=== PATIENT | female | born 1970 | race Caucasian/White ===

== ENCOUNTER 2022-07-16 12:18 | Observation (INO) | payer BC, SELFPAY ==
[2022-07-16] VITALS (16 sets, daily range): BP systolic 107–140; BP diastolic 68–110; PULSE 80–107; RESP 14–21; TEMP 36.6–37.1; O2SAT 99–100
--- NOTE | ~2022-07-16 | XR_ITS ---
EXAMINATION: XR chest 2V DATE: 07/16/2022 14:12 INDICATION: Shortness of breath. Palpitations with exertion. TECHNIQUE: Frontal and lateral views of the chest were obtained. COMPARISON: Chest 2 views 04/01/2009 FINDINGS: A calcified left lung nodule is consistent with old granulomatous disease. No pleural effus ion or pneumothorax. The heart size is normal. There is a moderate-sized hiatal hernia. IMPRESSION: 1. Moderate-sized hiatal hernia. Reviewed, dictated and finalized at location A.
[2022-07-16 12:37] LABS: Basophils Absolute Auto 0.1 K/mm3 (0.0-0.1); Basophils Percent Auto 1.2 % (0.2-1.2); Eosinophils Absolute Auto 0.3 K/mm3 (0-0.3); Eosinophils Percent Auto 4.4 % (0-4.4); Hematocrit 22.5 % (37.0-47.0); Immature Granulocyte Absolute 0.01 K/mm3 (0.00-0.031); Immature Granulocyte Percent A 0.2 % (0-0.5); Lymphocytes Absolute Auto 1.84 K/mm3 (0.9-3.2); Lymphocytes Percent Auto 32.6 % (18.3-44.2); Mean Corpuscular HGB Conc 27.6 g/dl (32-36); Mean Corpuscular Volume 83.3 fl (80-100); Mean Platelet Volume 11.3 fl (7.4-10.4); Monocytes Absolute Auto 0.7 K/mm3 (0.1-0.6); Monocytes Percent Auto 13.1 % (2.6-8.5); Neutrophils Absolute Auto 2.7 K/mm3 (1.3-6.7); Neutrophils Percent Auto 48.5 % (45.5-73.1); Platelet Count Result 322 k/mm3 (150-375); White Blood Count 5.6 K/mm3 (4.5-10.0)
[2022-07-16 12:47] LABS: Hemoglobin 6.2 g/dL (12.0-15.0); Partial Thromboplastin Time 22.1 SECONDS (22.3-36.8); Prothrombin Time 13.5 Seconds (11.1-14.7)
[2022-07-16 12:48] LABS: Anisocytosis 2+ (NORMAL); Hypochromasia 2+ (NORMAL); Platelet Estimate Adequate (Adequate); Schistocytes None Seen (NORMAL)
[2022-07-16 12:49] LABS: Ovalocytes 1+ (NORMAL)
[2022-07-16 12:59] LABS: Alanine Aminotransferase 22 U/L (6-35); Albumin Level 4.3 g/dL (3.5-5.1); Alkaline Phosphatase 66 U/L (38-126); Anion Gap 9 mmol/L (8-16); Aspartate Amino Transferase 30 U/L (14-36); Bilirubin,Total 0.4 mg/dL (0.2-1.3); Blood Urea Nitrogen 12 mg/dL (7-17); Calcium 8.8 mg/dL (8.4-10.2); Carbon Dioxide 23 mmol/L (22-30); Chloride 105 mmol/L (98-107); Estimated CRCL calculation 95 ml/min; Estimated Glomerular Filt Rate > 60; Glucose 96 mg/dL (65-110); Potassium 3.9 mmol/L (3.4-5.0); Sodium 137 mmol/L (137-145)
--- NOTE | 2022-07-16 13:01 | ED.RECABL ---
HPI - Recheck/Abnormal Lab/Rx General Chief Complaint: Recheck/Abnormal Lab/Rx Stated Complaint: low hemoglobin Time Seen by Provider: 07/16/22 12:30 Source: patient Mode of arrival: ambulatory Limitations: no limitations History of Present Illness HPI narrative: Patient is a 51 y/o female who presents to the ED with c/o low hemoglobin. Patient reports over the last few days, she has had increased fatigue, generalized weakness, exertional dyspnea, palpitations with exertion. She went to [facility] yesterday to have her blood drawn as she has a history of anemia. She was notified that her hemoglobin was low at 5.8. She then presented here. Patient does currently take iron supplements. She has required transfusions in the past. She reports dark stools related to the iron, but denies any bright red bleeding, epistaxis, hematemesis, vaginal bleeding, hematuria. Denies any abdominal pain, nausea, vomiting, chest pain, dizziness/lightheadedness. Related Data Home Medications Medication Instructions Recorded Confirmed albuterol sulfate 0.63 mg/3 mL mg 07/16/22 solution for nebulization Allergies Allergy/AdvReac Type Severity Reaction Status Date / Time No Known Allergies Allergy Unknown Verified 07/16/22 12:27 Review of Systems Review of Systems: CONSTITUTIONAL: Denies fever, chills, or sweats. CARDIOVASCULAR: See HPI. RESPIRATORY: See HPI. GASTROINTESTINAL: See HPI. GENITOURINARY: Denies vaginal bleeding, dysuria or hematuria. SKIN: Denies rash or itching. MUSCULOSKELETAL: Denies back pain, joint pain, or myalgia. NEUROLOGIC: See HPI. All systems reviewed & are unremarkable except as noted in HPI and below PMFSH Past Medical History Medical History Anemia Surgical History Surgical History No pertinent past surgical history Exam Narrative: GENERAL: Well appearing, obese with BMI of 32.7, non-toxic, in no acute distress. HEAD: Normocephalic, atraumatic. NECK: Supple. No adenopathy, no masses. RESPIRATORY: Airway patent, respirations nonlabored. Clear to auscultation bilaterally, no rales, rhonchi, wheezing. CARDIOVASCULAR: Regular rate and rhythm without murmurs, rubs, or gallops. Radial pulses 2+ and equal bilaterally. ABDOMINAL: Soft, no tenderness throughout abdomen, nondistended, no hepatosplenomegaly. Normoactive BS. RECTAL: Normal rectal tone. Brown stool, guaiac positive. No external hemorrhoids noted. MUSCULOSKELETAL: Moves all extremities. Strength/ROM intact without gross deformities. No edema. SKIN: Warm, dry, mildly pale. No rashes. NEURO: A&O X3. Speech clear. Cranial nerves II-XII grossly intact. Steady gait. No ataxic movements. PSYCHIATRIC: Appropriate mood and affect. Normal interaction. Course Vital Signs Vital signs: Vital Signs Temperature 98.7 F 07/16/22 12:25 Pulse Rate 107 H 07/16/22 12:25 Respiratory Rate 21 H 07/16/22 12:25 Blood Pressure 140/110 H 07/16/22 12:25 Pulse Oximetry 100 07/16/22 12:25 Oxygen Delivery Room Air 07/16/22 12:25 Temperature 98.7 F 07/16/22 12:25 Pulse Rate 97 07/16/22 12:32 Respiratory Rate 16 07/16/22 12:32 Blood Pressure 138/90 07/16/22 12:32 Pulse Oximetry 100 07/16/22 12:32 Oxygen Delivery Room Air 07/16/22 12:25 MDM - Recheck/Abnormal Lab/Rx MDM Narrative Medical decision making narrative: Patient presented to ED with report of low hemoglobin, has had exertional dyspnea/palpitations/fatigue over the last few days. History of anemia on iron supplements. Patient initially tachycardic and tachypneic upon arrival, vitals stabilized quickly after resting on the ED stretcher. CBC with critically low hemoglobin at 6.2, normocytic with MCV 83, hematocrit 22.5. Normal WBC and platelets. Rectal exam performed in the ED revealed brown stool, guaiac positive. Patient denies any r
--- NOTE | 2022-07-16 13:36 | ECG_ITS ---
Measurements Intervals [place] Rate: 91 P: 32 WI: 119 QRS: 29 QRSD: 81 T: 33 QT: 354 QTc: 436 Interpretive Statements SINUS RHYTHM WITH SHORT WI INTERVAL BORDERLINE R WAVE PROGRESSION, ANTERIOR LEADS LOW QRS VOLTAGE- DIFFUSE LEADS BORDERLINE ST-T WAVE ABNORMALITY- INFERIOR LEADS BORDERLINE ECG NO PREVIOUS ECG AVAILABLE FOR COMPARISON Electronically Signed On 07-17-2022 7:50:31 CDT by Mike Martínez D.O.
[2022-07-16 14:47] LABS: NT Pro B Type Natriuretic Pept 155 pg/mL (19.9-100)
[2022-07-16 14:48] LABS: Troponin I < 0.012 ng/mL (0.000-0.034)
[2022-07-16 15:00] LABS: Transferrin 365 mg/dL (206-381); Troponin I < 0.012 ng/mL (0.000-0.034)
[2022-07-16 15:27] LABS: Iron < 10 ug/dL (37-170)
[2022-07-16 15:57] LABS: Folic Acid > 20.0 ng/mL (2.76->20)
[2022-07-16 16:03] LABS: Ferritin 6.21 ng/mL (6.24-137)
[2022-07-16 16:14] LABS: Percent Iron Saturation < 2 % (20-50)
--- NOTE | 2022-07-16 16:29 | PM.IMHP ---
H&P: HPI History of Present Illness Date/Time: 07/16/22 16:29 Chief Complaint: Abnormal labs Narrative: this is a 51-year-old female patient who has a history of iron deficiency anemia. The patient came to the emergency room due to low hemoglobin. Over the last several days the patient has been having increased weakness, exertional dyspnea and increased fatigue. She also had palpitations with exertion. The patient had [facility] lab draw her blood yesterday because of her anemia history. She was notified that her hemoglobin was as low as 5.8. There for she presented to the emergency room here at [facility] today. The patient has been having dark stools related to her oral pill intake. Patient was found to be guaiac positive today. The patient has had a blood transfusion in the past. She denies any hematemesis or him at a she sub. She denies any dizziness or lightheaded. No nausea vomiting or diarrhea. No complaints of shortness of breath or chest pain. The patient was given IV fluids. GI has been consulted. Hemoglobin 6.2 hematocrit 22.5. Iron is less than 10. TIBC is 532. Saturation is listen 2. Ferritin is 6.2. Troponin is negative. BNP is 155. Folate is greater than 20. The patient has been typed and cross-matched for 2 units of packed red blood cells. The patient is being admitted to observation status on the date of service of 07/16/2022. Review of Systems Review of Systems: All systems reviewed & are unremarkable except as noted in HPI and below Constitutional: Constitutional: Reports as per HPI and Reports no additional constitutional complaints Eyes: Eyes: Reports as per HPI and Reports no additional eye complaints ENT: Reports system reviewed and no additional complaints, except as documented and Reports Normal hearing present Cardiovascular: Cardiovascular: Reports no additional cardiovascular complaints Respiratory: Respiratory: Reports no additional respiratory complaints and Reports no additional respiratory complaints Gastrointestinal: Gastrointestinal: Reports as per HPI and Reports no additional gastrointestinal complaints Musculoskeletal: Musculoskeletal: Reports no additional musculoskeletal complaints Integumentary/Breasts: Skin/Breast: Reports system reviewed and no additional complaints, except as docu and Reports as per HPI Neurologic: Reports system reviewed and no additional complaints, except as documented, Reports as per HPI and Reports Normal hearing present Psychiatric: Psychiatric: Reports no additional psychiatric complaints and Reports as per HPI Endocrine: Endocrine: Reports no additional endocrine complaints Hematologic/Lymphatic: Hematologic/Lymphatic: Reports no additional hematologic/lymphatic complaints Allergic/Immunologic: Allergic/Immunologic: Reports no additional allergic/immunologic complaints PMFSH Past Medical History Medical History (Updated 07/16/22 @ 20:08 by Latrice Guerin NP) Anemia Asthma Surgical History Surgical History (Updated 07/16/22 @ 20:13 by Latrice Guerin NP) No pertinent past surgical history Family History Family History Mother Diabetes mellitus Son Diabetes mellitus Social History Social History (Updated 07/16/22 @ 20:10 by Latrice Guerin NP) Social History: the patient lives with her significant other. She has 2 children. The patient is self employed. She is a lifelong nonsmoker. Code status full code Smoking status: Never smoker Alcohol intake: current Drinks per week: 2 Substance use: never Substance use type: does not use Lack of Transportation: No Lack of Food: Never True Current Housing: I Have Housing Concerned About Future Housing: No Difficulty Paying Gas/Electric Bills: No Difficulty Paying for Meds: No Currently Unemployed: No Education: Don't Know Difficulty w/ Childcare or Family Care: No Spiritual care
--- NOTE | 2022-07-16 16:40 | ADMGEN ---
This patient, Kristine Salvador, was admitted to [facility] Surg Room 322-01. Patient/family oriented to hospital policies and general routines including ID bracelet, bed and alarms, visiting hours, pain management, procedures, bathroom and other care routines, personal items, smoking policy, room service/diet, and visiting hours. Information on how to activate the Rapid Response Team has been discussed. Patient/Family are encouraged to report perceived risks to care and to ask questions if they do not understand what they are told or what they should do.
[2022-07-17 02:20] LABS: Hematocrit 27.4 % (37.0-47.0)
[2022-07-17] MEDS: SODIUM CHLORIDE 0.9% IV 250 ML 30 ML IV CONT (03:22)
[2022-07-17 05:51] LABS: Basophils Absolute Auto 0.1 K/mm3 (0.0-0.1); Basophils Percent Auto 1.4 % (0.2-1.2); Eosinophils Absolute Auto 0.2 K/mm3 (0-0.3); Eosinophils Percent Auto 4.4 % (0-4.4); Immature Granulocyte Absolute 0.01 K/mm3 (0.00-0.031); Immature Granulocyte Percent A 0.2 % (0-0.5); Lymphocytes Absolute Auto 1.08 K/mm3 (0.9-3.2); Lymphocytes Percent Auto 25.1 % (18.3-44.2); Mean Corpuscular HGB Conc 29.6 g/dl (32-36); Mean Corpuscular Volume 84.4 fl (80-100); Mean Platelet Volume 11.1 fl (7.4-10.4); Monocytes Absolute Auto 0.5 K/mm3 (0.1-0.6); Monocytes Percent Auto 12.1 % (2.6-8.5); Neutrophils Absolute Auto 2.5 K/mm3 (1.3-6.7); Neutrophils Percent Auto 56.8 % (45.5-73.1); Platelet Count Result 228 k/mm3 (150-375); Red Cell Distribution Width 17.9 % (11.5-14.5); White Blood Count 4.3 K/mm3 (4.5-10.0)
[2022-07-17 06:00] VITALS: BP 128/82; PULSE 81; RESP 14; TEMP 36.2; O2SAT 100
[2022-07-17 06:07] LABS: Alanine Aminotransferase 17 U/L (6-35); Albumin Level 3.5 g/dL (3.5-5.1); Alkaline Phosphatase 51 U/L (38-126); Anion Gap 2 mmol/L (8-16); Aspartate Amino Transferase 22 U/L (14-36); Bilirubin,Total 0.8 mg/dL (0.2-1.3); Blood Urea Nitrogen 11 mg/dL (7-17); Calcium 8.2 mg/dL (8.4-10.2); Carbon Dioxide 26 mmol/L (22-30); Chloride 110 mmol/L (98-107); Estimated CRCL calculation 83 ml/min; Estimated Glomerular Filt Rate > 60; Glucose 86 mg/dL (65-110); Magnesium 2.4 mg/dL (1.6-2.3); Sodium 138 mmol/L (137-145)
[2022-07-17 06:21] LABS: Lactic Acid Reflex 0.6 mmol/L (0.7-2.0)
[2022-07-17 06:22] LABS: Anisocytosis 1+ (NORMAL); Platelet Estimate Adequate (Adequate); Poikilocytosis 1+ (NORMAL)
[2022-07-17 06:25] LABS: Schistocytes None Seen (NORMAL)
--- NOTE | 2022-07-17 07:18 | WPDGICN ---
Assessment and Plan Assessment and plan (1) TAINA (iron deficiency anemia): Code(s): D50.9 - Iron deficiency anemia, unspecified Status: Acute Assessment and Plan: Patient found to have anemia with iron deficient indices. This appears to be chronic and recurrent patient has been on iron previously. Initial plan was to proceed with GI endoscopy today after preparation yesterday. However patient refused preparation last night. Currently patient is stable. Endoscopy schedule is full for Sunday.(tomorrow). Plan colonoscopy an EGD on Sunday to further evaluate this. Patient does not appear to have any active bleeding. (Alternatively this could be done as an outpatient but likely will take several weeks to get approved and proceed.) Anticipate GI endoscopy when GI schedule allows. Plan to resume iron replacement after GI endoscopy. Continue monitor hemoglobin. Transfuse to a stable hematocrit at present. (2) Occult blood in stools: Code(s): R19.5 - Other fecal abnormalities Status: Acute Assessment and Plan: Patient found to have occult blood in stool suggesting GI blood loss may contribute to patient's recurrent iron deficiency anemia. Patient does not appear to have active bleeding rather occult blood in stool identified. GI Consult Note Consult date/time: 07/17/22 07:18 Reason for consult: Iron deficiency anemia and occult blood in stool. HPI: Kristine Salvador is a 51 year old female I am asked to see at the request of the emergency room. Patient in usual state of health. Was found to have rather significant anemia as an outpatient. For this reason sent to the emergency room. Patient reports she has been on low in iron and placed on iron replacement therapy since that time stools have been dark. In the emergency room stool hemoccults were documented to be Hemoccult positive. Patient denies any obvious blood in her stools. She has no nosebleeds or bruising. She states she did receive transfusions at some point in the past because of anemia. Family history is significant that her mother has had colon polyps. Patient has never had GI evaluation for her anemia. Patient was admitted to the hospital for transfusion last evening. Review of Systems Review of Systems: Review of systems noncontributory. PMFSH Past Medical History Medical History (Updated 07/17/22 @ 07:20 by Cristi Khan MD) Anemia Asthma Surgical History Surgical History (Updated 07/16/22 @ 20:13 by Latrice Guerin NP) No pertinent past surgical history Family History Family History Mother Diabetes mellitus Son Diabetes mellitus Social History Social History (Updated 07/16/22 @ 20:10 by Latrice Guerin NP) Social History: the patient lives with her significant other. She has 2 children. The patient is self employed. She is a lifelong nonsmoker. Code status full code Smoking status: Never smoker Alcohol intake: current Drinks per week: 2 Substance use: never Substance use type: does not use Lack of Transportation: No Lack of Food: Never True Current Housing: I Have Housing Concerned About Future Housing: No Difficulty Paying Gas/Electric Bills: No Difficulty Paying for Meds: No Currently Unemployed: No Education: Don't Know Difficulty w/ Childcare or Family Care: No Spiritual care concerns: No Meds Home Medications and Allergies Home Medications Medication Instructions Recorded Confirmed Type Adult One Daily Multivitamin 1 tablet PO DAILY 07/16/22 07/16/22 History albuterol sulfate 0.63 mg/3 mL 1 mg inhalation Q4H PRN Shortness 07/16/22 07/16/22 History solution for nebulization Of Breath ferrous sulfate-vitamin C 1 tablet PO DAILY 07/16/22 07/16/22 History Allergies Allergy/AdvReac Type Severity Reaction Status Date / Time No Known Allergies Allergy Unknown
--- NOTE | 2022-07-17 08:55 | PM.IMPN ---
Progress Note: A&P Assessment and Plan (1) Anemia: Code(s): D64.9 - Anemia, unspecified Status: Acute Assessment and Plan: Patient found to have iron deficiency anemia. Hemoglobin 6.2 on presentation. She was transfused 2 units packed RBCs on 07/16. H&H remaining stable now at 8.0. Appreciate GI and Hematology consultation. Stool reportedly guaiac positive in the ED. she will need EGD and colonoscopy following appropriate prep, tentatively planned for Sunday, 07/19. No evidence of active bleeding at this time. Continue iron supplementation. Trend H&H to ensure remaining stable. (2) GI bleeding: Qualifiers: GI bleed type/associated pathology: unspecified gastrointestinal hemorrhage type Qualified Code(s): K92.2 - Gastrointestinal hemorrhage, unspecified Code(s): K92.2 - Gastrointestinal hemorrhage, unspecified Status: Acute Assessment and Plan: See plan above. No evidence of active bleeding at this time. Stool occult blood test pending. (3) Asthma: Code(s): J45.909 - Unspecified asthma, uncomplicated Status: Acute Assessment and Plan: Not in acute exacerbation. Albuterol inhaler as needed Subjective Date/time seen: 07/17/22 08:55 Interval history: Date of service: 07/17/2022 Kristine Salvador is a 51-year-old female with history of asthma and anemia is seen in for anemia. Patient states that she is feeling fairly well today. She reports that her stools are dark due to taking iron supplementation and has not noticed any change in her stool over the past days to weeks. Denies any melena or hematochezia. Reports a formed bowel movement 2 days ago. She reports intermittent GERD symptoms which she attributes to a large hiatal hernia. She has no epigastric pain or tenderness. She denies nausea, vomiting, fever, chills. Denies hematuria, hematemesis, hemoptysis, epistaxis, or any other episodes of bleeding. Denies shortness of breath, cough, or chest pain. She does feel a bit bloated in her abdomen after receiving her 2nd blood transfusion. Denies any swelling in her extremities. Review of Systems Review of Systems: All systems reviewed & are unremarkable except as noted in HPI and below Exam Narrative: General: Well-nourished, well-appearing 51-year-old female, sitting up in bed, comfortable, NARD Neuro: awake, alert and oriented x4, speech clear, no focal neuro deficits noted HEENMT: normocephalic, atraumatic, EOMI, sclerae anicteric Respiratory: clear to auscultation bilaterally, nonlabored breathing Cardio: regular rate, regular rhythm with S1-S2 Abdomen: nondistended, normoactive bowel sounds, soft, nontender to palpation Extremities: no edema, erythema, or tenderness to palpation Skin: no rashes or lesions, warm and dry Psych: appropriate mood and affect, judgment and insight intact Objective Data Vital Signs Vital Signs: Vital Signs - 24 hr 07/16/22 12:25 07/16/22 12:32 07/16/22 16:58 Temperature 98.7 F 98.6 F Pulse Rate 107 H 97 92 Respiratory Rate 21 H 16 16 Blood Pressure 140/110 H 138/90 130/78 Pulse Oximetry 100 100 100 Oxygen Delivery Room Air 07/16/22 12:30 07/16/22 17:12 07/16/22 17:13 Temperature Pulse Rate 90 94 95 Respiratory Rate Blood Pressure 112/68 129/80 125/75 Pulse Oximetry Oxygen Delivery 07/16/22 17:28 07/16/22 18:20 07/16/22 17:25 Temperature 98.6 F 98.6 F Pulse Rate 91 91 Respiratory Rate 18 18 Blood Pressure 120/73 120/73 Pulse Oximetry 100 100 100 Oxygen Delivery Room Air 07/16/22 17:44 07/16/22 18:44 07/16/22 19:44 Temperature 98.6 F 98.5 F 97.9 F Pulse Rate 84 88 94 Respiratory Rate 18 18 18 Blood Pressure 123/88 122/74 126/79 Pulse Oximetry 100 100 100 Oxygen Delivery 07/16/22 20:56 07/16/22 21:07 07/16/22 21:17 Temperature 98.6 F 98.2 F 98.1 F Pulse Rate 96 86 82 Respiratory Rate 18 18 16 Blood Pressure 135/90 107/68 109/
[2022-07-17] MEDS: MULTIVITAMINS THERAPEUTIC TAB (*BKC) 1 TABLET PO (08:59)
[2022-07-17] MEDS: ASCORBIC ACID 500 MG TABLET PO (08:59)
[2022-07-17 13:55] LABS: IFOB Positive Control Positive; Immunochemical Fecal Occult Bl Negative (N)
[2022-07-17 14:00] VITALS: BP 119/70; PULSE 99; RESP 16; TEMP 36.1; O2SAT 100
[2022-07-17 17:59] LABS: Hematocrit 29.7 % (37.0-47.0); Hemoglobin 8.6 g/dL (12.0-15.0)
[2022-07-17 21:32] VITALS: BP 117/69; PULSE 88; RESP 18; TEMP 36.9; O2SAT 100
[2022-07-18 06:00] VITALS: BP 132/72; PULSE 83; RESP 14; TEMP 36.9; O2SAT 99
[2022-07-18 06:23] LABS: Hematocrit 26.9 % (37.0-47.0); Mean Corpuscular HGB Conc 29.7 g/dl (32-36); Mean Corpuscular Hemoglobin 25.4 pg (26-34); Mean Corpuscular Volume 85.4 fl (80-100); Platelet Count Result 217 k/mm3 (150-375); Red Blood Count 3.15 M/mm3 (4.2-5.4); Red Cell Distribution Width 18.2 % (11.5-14.5); White Blood Count 3.9 K/mm3 (4.5-10.0)
[2022-07-18 06:34] LABS: Anion Gap 2 mmol/L (8-16); Blood Urea Nitrogen 13 mg/dL (7-17); Calcium 8.2 mg/dL (8.4-10.2); Carbon Dioxide 25 mmol/L (22-30); Chloride 110 mmol/L (98-107); Estimated CRCL calculation 83 ml/min; Estimated Glomerular Filt Rate > 60; Glucose 101 mg/dL (65-110); Potassium 3.8 mmol/L (3.4-5.0); Sodium 137 mmol/L (137-145)
[2022-07-18] MEDS: ACETAMINOPHEN 325 MG TABLET 650 MG PO (06:48)
[2022-07-18] MEDS: FERROUS SULFATE 324 MG TABLET PO (08:17)
[2022-07-18] MEDS: MULTIVITAMINS THERAPEUTIC TAB (*BKC) 1 TABLET PO (08:17)
[2022-07-18] MEDS: ASCORBIC ACID 500 MG TABLET PO (08:23)
[2022-07-18] MEDS: PEG (High)/E-LYTE SOLN 4,000 ML BTL 4000 ML PO (10:27)
--- NOTE | 2022-07-18 12:49 | PDONCCN ---
HPI - Date of Consult Date/Time: 07/18/22 12:49 Requesting Physician: Vicki Holman PA-C Primary Care Provider: Dawood Nettles MD - Consult Narrative Reason for consult: Iron deficiency anemia Narrative: Kristine Salvador is a 51 year old female with history of iron deficiency anemia and received blood transfusion 5 years ago came into the hospital with generalized weakness dyspnea on exertion and palpitation with few flights of stairs. She denies any bleeding including melena hematochezia but does have dark stool due to the oral iron she has been taking. On arrival to the ER her hemoglobin was only 5.8. She never had EGD and colonoscopy in the past. She received 2 units of packed red blood cell. She is currently receiving preparation for the endoscopy and colonoscopy tomorrow. She denies any history of stomach surgery. She denies being a vegetarian. Denies any recent weight loss. No other new complaints. Review of Systems - Review of Systems All systems reviewed & are unremarkable except as noted in HPI and bel - Neurologic Reports system reviewed and no additional complaints, except as documented, Reports hearing normal [facility] Medical History: Medical History (Last Updated 07/16/22 @ 20:08 by Latrice Guerin NP) Anemia Asthma Surgical History: Surgical History (Last Updated 07/16/22 @ 20:13 by Latrice Guerin NP) No pertinent past surgical history Family History: Family History (Last Reviewed 07/16/22 @ 20:08 by Latrice Guerin NP) Mother Diabetes mellitus Son Diabetes mellitus - Social History Social History: Social History (Last Updated 07/16/22 @ 20:10 by Latrice Guerin NP) Alcohol Use: Alcohol intake: current Drinks per week: 2 Substance Use: Substance use: never Substance use type: does not use Others: Spiritual care concerns: No Smoking Status: Smoking status: Never smoker Social Determinants of Health: Has the Lack of Transportation Kept You From Medical Appointments or From Getting Medications?: No Within the Past 12 Months, Were You Worried Whether Your Food Would Run Out Before You Got Money to Buy More?: Never True What is Your Housing Situation Today?: I Have Housing Are You Worried That in the Next 2 Months, You May Not Have Your Own Housing to Live In?: No Do You Have Trouble Paying Your Heating Or Electricity Bill?: No Do You Have Trouble Paying For Medicines?: No Are You Currently Unemployed and Looking for Work?: No Highest Level of Education Completed: Don't Know Do You Have Trouble With Childcare or the Care of a Family Member?: No Exam - Vital Signs Vital Signs - 24 hr 07/17/22 14:00 07/17/22 20:00 07/17/22 21:32 Temperature 36.1 C L 36.9 C Pulse Rate 99 88 Respiratory Rate 16 18 Blood Pressure 119/70 117/69 Pulse Oximetry 100 100 Oxygen Delivery Room Air 07/18/22 06:00 Temperature 36.9 C Pulse Rate 83 Respiratory Rate 14 Blood Pressure 132/72 Pulse Oximetry 99 Oxygen Delivery - Exam HEENT: EOMI, PERRLA, mucous membranes moist and pink Neck: supple. No: JVD Lungs: clear to auscultation, normal air movement Heart: no murmurs, gallops, or rubs, regular rhythm, regular rate Abdomen: abdomen soft, non-distended, normal bowel sounds Extremities: normal pulses Integumentary: no abnormalities Neurological: normal speech Psychological: mental status NL, mood NL - Lab Results Laboratory Last Values WBC 3.9 K/mm3 (4.5-10.0) L 07/18/22 06:08 RBC 3.15 M/mm3 (4.2-5.4) L 07/18/22 06:08 Hgb 8.0 g/dL (12.0-15.0) L 07/18/22 06:08 Hct 26.9 % (37.0-47.0) L 07/18/22 06:08 MCV 85.4 fl (80-100) 07/18/22 06:08 MCH 25.4 pg (26-34) L 07/18/22 06:08 MCHC 29.7 g/dl (32-36) L 07/18/22 06:08 RDW 18.2 % (11.5-14.5) H 07/18/22 06:08 Plt Count 217 k/mm3 (150-375) 07/18/22 06:08 MPV 11.0
--- NOTE | 2022-07-18 14:24 | PM.IMPN ---
Progress Note: A&P Assessment and Plan (1) Anemia: Code(s): D64.9 - Anemia, unspecified Status: Acute Assessment and Plan: Patient found to have iron deficiency anemia. Hemoglobin 6.2 on presentation. She was transfused 2 units packed RBCs on 07/16. H&H remaining stable now at 8.0. Appreciate GI and Hematology consultation. Stool reportedly guaiac positive in the ED. Stool occult blood test during this admission is negative. Planning for EGD and colonoscopy tomorrow. No evidence of active bleeding at this time. Continue PO iron supplementation with vitamin C. IV iron infusion today per hematology recommendations. Repeat H&H this evening to ensure remaining stable. (2) GI bleeding: Qualifiers: GI bleed type/associated pathology: unspecified gastrointestinal hemorrhage type Qualified Code(s): K92.2 - Gastrointestinal hemorrhage, unspecified Code(s): K92.2 - Gastrointestinal hemorrhage, unspecified Status: Acute Assessment and Plan: See plan above. No evidence of active bleeding at this time. Stool occult blood test negative. (3) Asthma: Code(s): J45.909 - Unspecified asthma, uncomplicated Status: Acute Assessment and Plan: Not in acute exacerbation. Albuterol inhaler as needed Subjective Date/time seen: 07/18/22 14:24 Interval history: Date of service: 07/18/2022 Kristine Salvador is a 51-year-old female with history of asthma and anemia who is seen in for anemia. She is feeling okay today. She did have some nausea this morning which she attributes to taking her iron supplement on empty stomach. This [place] have 1 episode of watery emesis but she states that she was able to keep her pills down. She denies any ongoing nausea or vomiting. Reports having a formed bowel movement this morning. States that she has noticed very dark stools yesterday and this morning. Denies abdominal pain. No fevers or chills. No shortness of breath, cough, chest pain, dizziness, lightheadedness. Review of Systems Review of Systems: All systems reviewed & are unremarkable except as noted in HPI and below Exam Narrative: General: Well-nourished, well-appearing 51-year-old female, sitting up in bed, comfortable, NARD Neuro: awake, alert and oriented x4, speech clear, no focal neuro deficits noted HEENMT: normocephalic, atraumatic, EOMI, sclerae anicteric Respiratory: clear to auscultation bilaterally, nonlabored breathing Cardio: regular rate, regular rhythm with S1-S2 Abdomen: nondistended, normoactive bowel sounds, soft, nontender to palpation Extremities: no edema, erythema, or tenderness to palpation Skin: no rashes or lesions, warm and dry Psych: appropriate mood and affect, judgment and insight intact Objective Data Vital Signs Vital Signs: Vital Signs - 24 hr 07/17/22 20:00 07/17/22 21:32 07/18/22 06:00 Temperature 98.5 F 98.4 F Pulse Rate 88 83 Respiratory Rate 18 14 Blood Pressure 117/69 132/72 Pulse Oximetry 100 99 Oxygen Delivery Room Air Intake/Output Intake/Output: Intake & Output 07/15/22 07/16/22 07/17/22 07/18/22 23:59 23:59 23:59 23:59 Intake Total 1420 1100 200 Output Total 100 1000 1000 Balance 1320 100 -800 Meds/Results Medications: Active Medications Generic Name Dose Route Start Last Admin Trade Name Freq PRN Reason Stop Dose Admin Acetaminophen 650 mg 07/18/22 06:22 07/18/22 06:48 Acetaminophen 325 Mg Tablet PO 650 mg Q4H PRN Administration Mild Pain (1-3) or Fever Albuterol 2.5 mg 07/17/22 08:08 Albuterol Sulfate Neb 2.5 Mg/3 Ml Inh INHALATION Q6HRT PRN Shortness Of Breath Ascorbic Acid 500 mg 07/17/22 09:00 07/18/22 08:23 Ascorbic Acid 500 Mg Tablet PO 500 mg QAM ROGERIO Administration Ferrous Sulfate 324 mg 07/17/22 09:00 07/18/22 08:17 Ferrous Sulfate 324 Mg Tablet PO 324 mg DAILY ROGERIO Administration Iron Sucrose 500
[2022-07-18 14:45] VITALS: BP 131/94; PULSE 76; RESP 12; TEMP 36.4; O2SAT 100
[2022-07-18 18:03] LABS: Hematocrit 31.3 % (37.0-47.0); Hemoglobin 9.2 g/dL (12.0-15.0)
[2022-07-18 21:46] VITALS: BP 131/81; PULSE 80; RESP 18; TEMP 36.3; O2SAT 100
[2022-07-19 06:00] VITALS: BP 113/76; PULSE 75; RESP 18; TEMP 36.3; O2SAT 100
[2022-07-19 06:23] LABS: Hematocrit 31.8 % (37.0-47.0); Hemoglobin 9.2 g/dL (12.0-15.0); Mean Corpuscular HGB Conc 28.9 g/dl (32-36); Mean Corpuscular Hemoglobin 24.5 pg (26-34); Mean Corpuscular Volume 84.8 fl (80-100); Mean Platelet Volume 11.1 fl (7.4-10.4); Platelet Count Result 257 k/mm3 (150-375); Red Blood Count 3.75 M/mm3 (4.2-5.4); Red Cell Distribution Width 18.2 % (11.5-14.5); White Blood Count 5.2 K/mm3 (4.5-10.0)
[2022-07-19 06:50] LABS: Anion Gap 8 mmol/L (8-16); Blood Urea Nitrogen 6 mg/dL (7-17); Calcium 8.7 mg/dL (8.4-10.2); Carbon Dioxide 26 mmol/L (22-30); Chloride 107 mmol/L (98-107); Estimated CRCL calculation 83 ml/min; Estimated Glomerular Filt Rate > 60; Glucose 94 mg/dL (65-110); Potassium 3.8 mmol/L (3.4-5.0); Sodium 141 mmol/L (137-145)
[2022-07-19] MEDS: IRON SUCROSE COMPLEX 500 MG in SODIUM CHLORIDE 0.9% IV 250 ML 78.57 MG IVPB (07:59)
--- NOTE | 2022-07-19 10:42 | PC.NURSE ---
To GI Lab per [neo], IV [ 20 left ac]. Report given to [george].
[2022-07-19 10:49] VITALS: BP 124/79; PULSE 82; RESP 18; TEMP 36.8; O2SAT 99
[2022-07-19] MEDS: LACTATED RINGERS 1,000 ML 150 ML IV CONT (11:40)
--- NOTE | 2022-07-19 12:01 | SUR.OPER ---
EGD COMPLETED AT 1155 AND COLONOSCOPY STARTED AT 1202
--- NOTE | 2022-07-19 12:04 | WPDANESEPPF ---
Anes - Initial Pre Proc Eval Procedure: Operation Date: 07/19/22 14:45 Proposed Procedures p Esophagogastroduodenoscopy & Colonoscopy - Cristi Khan MD Date/Time: 07/19/22 12:04 Surgeon: Vicki Holman PA-C Pre Op Diagnosis: Symptomatic Anemia/GIB/Exertional Dyspnea Patient Data Age: 51 Gender: F Height: 1.57 m Weight: 81 kg Last Vital Signs Temp 98.3 F 07/19/22 10:49 Pulse 82 07/19/22 10:49 Resp 18 07/19/22 10:49 BP 124/79 07/19/22 10:49 Pulse Ox 99 07/19/22 10:49 O2 Del Method Room Air 07/19/22 10:49 Allergies Allergy/AdvReac Type Severity Reaction Status Date / Time No Known Allergies Allergy Unknown Verified 07/19/22 10:47 Home Medications Medication Instructions Recorded Confirmed Type Adult One Daily Multivitamin 1 tablet PO DAILY 07/16/22 07/16/22 History ferrous sulfate-vitamin C 1 tablet PO DAILY 07/16/22 07/16/22 History albuterol sulfate 0.63 mg/3 mL 0.63 mg inhalation Q6H PRN 07/17/22 07/17/22 History solution for nebulization Shortness Of Breath Laboratory Tests 07/18/22 07/19/22 17:57 06:14 WBC 5.2 K/mm3 (4.5-10.0) RBC 3.75 L M/mm3 (4.2-5.4) Hgb 9.2 L g/dL 9.2 L g/dL (12.0-15.0) (12.0-15.0) Hct 31.3 L % 31.8 L % (37.0-47.0) (37.0-47.0) MCV 84.8 fl (80-100) MCH 24.5 L pg (26-34) MCHC 28.9 L g/dl (32-36) RDW 18.2 H % (11.5-14.5) Plt Count 257 k/mm3 (150-375) MPV 11.1 H fl (7.4-10.4) Sodium 141 mmol/L (137-145) Potassium 3.8 mmol/L (3.4-5.0) Chloride 107 mmol/L (98-107) Carbon Dioxide 26 mmol/L (22-30) Anion Gap 8 mmol/L (8-16) BUN 6 L D mg/dL (7-17) Creatinine 0.70 mg/dL (0.7-1.0) Estim Creat Clear Calc 83 ml/min Estimated GFR > 60 (59 - ) Glucose 94 mg/dL (65-110) Calcium 8.7 mg/dL (8.4-10.2) Patient hx anesthesia problems: none Family hx anesthesia problems: none Results Review: All pre-operative results and documents have been reviewed as part of the pre-operative evaluation. [facility] Past Medical History Medical History (Updated 07/17/22 @ 07:20 by Cristi Khan MD) Anemia Asthma Surgical History Surgical History (Updated 07/18/22 @ 12:52 by Paco Main MD) No pertinent past surgical history Family History Family History Mother Diabetes mellitus Son Diabetes mellitus Social History Social History (Updated 07/16/22 @ 20:10 by Latrice Guerin NP) Social History: the patient lives with her significant other. She has 2 children. The patient is self employed. She is a lifelong nonsmoker. Code status full code Smoking status: Never smoker Alcohol intake: current Drinks per week: 2 Substance use: never Substance use type: does not use Lack of Transportation: No Lack of Food: Never True Current Housing: I Have Housing Concerned About Future Housing: No Difficulty Paying Gas/Electric Bills: No Difficulty Paying for Meds: No Currently Unemployed: No Education: Don't Know Difficulty w/ Childcare or Family Care: No Spiritual care concerns: No Anes - Eval Final PreProcedure Day of Procedure 07/19/22 12:04 Patient weight: obese Heart: regular rate and rhythm Lungs: clear to auscultation Airway: Mallampati scale class II Neurological: alert and oriented Last oral intake: >/= 8 hours ASA classification: II Emergent: no Anesthetic plan: proceed Anesthesia type and monitoring: general GIVS and standard monitoring Results Review: All pre-operative results and documents have been reviewed as part of the pre-operative evaluation. Informed Consent: The patient's anesthetic plan and its attendant risks and benefits were discussed with the patient/family/POA. Questions were solicited and answers provided to the satisfaction of the pat
[2022-07-19 12:26] VITALS: BP 90/45; PULSE 92; RESP 23; O2SAT 100
[2022-07-19 12:36] VITALS: BP 92/66; PULSE 89; RESP 19; O2SAT 100
[2022-07-19 12:46] VITALS: BP 97/58; PULSE 75; RESP 15; O2SAT 100
[2022-07-19] MEDS: ACETAMINOPHEN 325 MG TABLET 650 MG PO (13:27)
[2022-07-19 14:00] VITALS: BP 117/70; PULSE 75; RESP 12; TEMP 36.6; O2SAT 99
--- NOTE | 2022-07-19 14:16 | PC.NURSE ---
Returned from GI Lab. Report received from [Alma].
--- NOTE | 2022-07-19 15:31 | PM.DS ---
DS: Admitting Diagnosis Discharge Date 07/19/2022 Admitting Diagnosis anemia DS: Discharge Diagnosis Discharge Diagnosis (1) Anemia: Code(s): D64.9 - Anemia, unspecified Status: Acute Assessment and Plan: Patient found to have iron deficiency anemia. Hemoglobin 6.2 on presentation. She was transfused 2 units packed RBCs on 07/16. H&H remained stable following transfusion. She was seen in consultation by Gastroenterology and Hematology during admission. Stool occult blood test was negative, the reportedly guaiac positive in the ED. Underwent EGD and colonoscopy on 07/19. EGD showed Mc erosions of hiatal hernia, which is likely etiology for GI bleeding/anemia. colonoscopy unremarkable with only few internal hemorrhoids, no lower GI source of anemia. Patient was educated on anti-reflux measures. She will begin taking Protonix 40 mg daily. IV iron infusion completed during admission. Continue oral iron and vitamin-C supplementation as an outpatient. follow-up with Hematology outpatient for continued monitoring. Repeat H&H in 1 week to ensure remaining stable (2) GI bleeding: Qualifiers: GI bleed type/associated pathology: unspecified gastrointestinal hemorrhage type Qualified Code(s): K92.2 - Gastrointestinal hemorrhage, unspecified Code(s): K92.2 - Gastrointestinal hemorrhage, unspecified Status: Acute Assessment and Plan: See plan above. (3) Asthma: Code(s): J45.909 - Unspecified asthma, uncomplicated Status: Acute Assessment and Plan: Not in acute exacerbation. Albuterol inhaler as needed DS: Summary Hospital Course Hospital Course: date of admission: 07/16/2022 date of discharge: 07/19/2022 Kristine Salvador is a 51-year-old female with history of asthma and anemia who presented to the emergency department on 07/16/2022 due to concerns of low hemoglobin on outpatient blood work. On presentation to ED, she was mildly tachycardic, additional vital signs stable, hemoglobin 6.2, hemoglobin 22.5, iron <10, TIBC 500, additional laboratory workup was unremarkable, CXR with moderate size hiatal hernia. She was admitted to the hospitalist service for further evaluation and management and was seen in consultation by Hematology and Gastroenterology. Please see above for further details. Patient received blood transfusion during admission and hemoglobin stabilized. Received IV iron infusions and will follow-up with hematology as an outpatient. EGD and colonoscopy completed with evidence of erosions of hiatal hernia which is the likely etiology for anemia. Patient started on Protonix. patient had no ongoing bleeding in was feeling back to her usual state of health. She will have repeat H&H in 1 week and follow-up with her PCP for continued monitoring. Patient felt comfortable with plans for discharge home and she was educated on worrisome signs and symptoms for which to return. She was discharged in hemodynamically stable condition on 07/19/2022. Time Spent with Patient Time attestation: Total time spent providing and/or coordinating discharge services: Exam Narrative: General: Well-nourished, well-appearing 51-year-old female, sitting up in bed, comfortable, NARD Neuro: awake, alert and oriented x4, speech clear, no focal neuro deficits noted HEENMT: normocephalic, atraumatic, EOMI, sclerae anicteric Respiratory: clear to auscultation bilaterally, nonlabored breathing Cardio: regular rate, regular rhythm with S1-S2 Abdomen: nondistended, normoactive bowel sounds, soft, nontender to palpation Extremities: no edema, erythema, or tenderness to palpation Skin: no rashes or lesions, warm and dry Psych: appropriate mood and affect, judgment and insight intact DS: Data Data Completed and Pending Pending studies at discharge: Pending at discharge 07/19/22 12:13 Surgical [PTH] Routine Labs on day of discharge: [place]
[2022-07-20 20:20] LABS: Haptoglobin 95 mg/dL (43-212)
== END 2022-07-19 16:05 | disposition home or self-care (01) ==
LOC: ANHED 15:19 → ANH3MEDSUR 16:29
PROVIDERS: Emergency Medicine; Internal Medicine; Internal Medicine Gastroenterology; Nurse Practitioner; Admitting Provider Family Medicine; Emergency Provider Physician Assistant; PCP Family Medicine Adolescent Medicine; Visit Provider Physician Assistant
PROC: 0DJ08ZZ Inspection of Upper Intestinal Tract, Via Natural or Artificial Opening Endoscopic (ICD-10-PCS; CPT 43235; principal; 2022-07-19 14:45)
DX: D50.9 Iron deficiency anemia, unspecified (principal); K44.9 Diaphragmatic hernia without obstruction or gangrene; K29.60 Other gastritis without bleeding; Q39.4 Esophageal web; Z12.11 Encounter for screening for malignant neoplasm of colon; K64.8 Other hemorrhoids; R19.5 Other fecal abnormalities; J45.909 Unspecified asthma, uncomplicated; R06.09 Other forms of dyspnea; E66.9 Obesity, unspecified; F10.90 Alcohol use, unspecified, uncomplicated; Z68.32 Body mass index [BMI] 32.0-32.9, adult; Z79.51 Long term (current) use of inhaled steroids; Z79.899 Other long term (current) drug therapy
CPT/HCPCS: 43239; 43450; 45378; 36415; 36430; 71046; 80048; 80053; 82274; 82607; 82728; 82746; 83010; 83540; 83550; 83605; 83735; 83880; 84443; 84466; 84484; 85014; 85018; 85025; 85027; 85610; 85730; 86850; 86900; 86901; 86923; 87081; 88305; 93005; 99285; A9270; G0378; G0379; J1756; J2001; J2704; J7050; J7120; P9016